=== PATIENT | female | born 1955 | race Caucasian/White ===

== ENCOUNTER 2025-04-01 08:21 | Outpatient (CLI) | payer BC, SELFPAY ==
--- NOTE | 2025-04-01 06:00 | DI.RAD_ITS ---
Exam(s) XR PAIN CLINIC LUMBAR SP 2V EXAM: XR PAIN CLINIC LUMBAR SP 2V CLINICAL HISTORY: DX: Lumbar Radiculopathy TECHNIQUE: 2D and realtime digital imaging was performed. CONTRAST MATERIAL: Refer to procedure report. COMPARISON: No exams were available for comparison FINDINGS: Fluoroscopy was provided for Dr. Landrum during the performance of a lumbar epidural steroid injection. Please refer to the procedure report for complete details. Ka,r=18.4 mGy IMPRESSION: RADIATION DOSE DELIVERED: 0.0 0.0 0
[2025-04-01 08:42] VITALS: BP 108/74; PULSE 65; RESP 18; TEMP 36.2; O2SAT 98
[2025-04-01 09:25] VITALS: PULSE 62; PULSE 65; RESP 19; O2SAT 94
[2025-04-01 09:28] VITALS: BP 113/63; PULSE 60; PULSE 61; RESP 19; O2SAT 98
[2025-04-01 09:30] VITALS: PULSE 58; RESP 16; O2SAT 98
[2025-04-01 09:39] VITALS: BP 111/70; PULSE 60
[2025-04-01] MEDS: Epidural Tray 1 EACH MC (09:58)
[2025-04-01] MEDS: Omnipaque 240 MG/ML 50 ML BTL IJ (09:58)
[2025-04-01] MEDS: methylPREDNISolone ACETATE 80 MG/ML VIAL IJ (09:59)
--- NOTE | 2025-04-02 08:57 | PDOC.PAIN_ITS ---
Date of service: 04/01/25 Time of Service: 09:30 Pain Managment Procedure Note Procedure Note Procedure Note: PROCEDURE NOTE LUMBAR EPIDURAL STEROID INJECTION Date of Service: April 01, 2025 Patient:Rocío Hirsch? Provider: Xu Landrum DO, MPH Rocío Hood has been referred to the [facility] for a lumbar epidural steroid injection. Pre-operative diagnosis: Lumbosacral Radiculopathy ICD-10 M54.16 Post-operative diagnosis: Same Pre-Procedure Pain: VAS= 7 /10 Comments: I previously evaluated her in the clinic. Rocío was interviewed and the medical record was reviewed.? There were no medical, pharmacologic, radiographic or other structural contraindications to attempting fluoroscopically guided Lumbar epidural steroid injection.? Risks, potential side effects, indications, and potential benefits of the procedure were reviewed with Rocío.? Questions and concerns were addressed.? After it was clear that Rocío was fully informed about the procedure, the printed consent form was signed by the patient and myself.? Rocío was placed in the prone position on the fluoroscopy table and automated blood pressure cuff and pulse oximeter applied. The skin entry point for entering/approaching the epidural space for the lumbar epidural steroid injection was marked. Following thorough chlorhexadine preparation of the skin and draping and 1% lidocaine infiltration of the skin entry point and subcutaneous tissues, an 18 gauge Touhy needle was placed and advanced under fluoroscopic guidance and with loss of resistance technique into the L5-S1 epidural space. Needle tip placement and depth were aided and confirmed by fluoroscopy. There was no paresthesia or return of blood or CSF through the needle. 1 mls of Omnipaque 240 was injected with clear epidural spread confirmed with fluoroscopy. 80 mg of Depo-Medrol was? injected. This was followed by 1 ml of preservative-free normal saline to flush the steroid out of the needle. There was no unusual discomfort expressed by Rocío. The needle was withdrawn without difficulty. (49 mls of Omnipaque was wasted) Rocío was observed and was without hemodynamic, neurologic, or allergic reactions.? Fluoroscopic images were digitally archived. Rocío's vital signs were stable throughout the procedure and were as recorded in nursing records. Follow up plans and appointments were discussed with Rocío. Post procedure instruction was given as documented in nursing records and having met discharge criteria Rocío was discharged from the [facility]. COMMENTS: No apparent complications. Post-procedure pain: VAS= 3/10. Rocío to contact [facility] as needed. If at least 50% improvement in pain and/or function for at least 3 months is achieved, this procedure can be repeated. I personally performed this entire procedure. XU LANDRUM DO, MPH ABPMR-subspecialty board certification in Pain Medicine [facility] Coding Conscious Sedation used for procedure: No CPT Codes: Inj Spine L/S w/Imaging - 31220 ([id number] ~G) Additional Codes: Date of Service (84842) Date of service: 04/01/25
== END 2025-04-01 08:22 | disposition home or self-care (01) ==
LOC: PC 08:21
PROVIDERS: PCP Physician Assistant Medical; Visit Provider Preventive Medicine Occupational Medicine
DX: M54.16 Radiculopathy, lumbar region (principal)
CPT/HCPCS: 62323; 72100; J1010; Q9967